=== PATIENT | male | born 1960 | race Caucasian/White ===

== ENCOUNTER 2016-11-28 10:46 | Day surgery (SDC) | payer OTHER ==
[~2016-11-28] VITALS: Ht 163.8 cm; Wt 86.2 kg
[2016-11-28 11:56] VITALS: Ht 163.8 cm; Wt 86.2 kg
[2016-11-28] MEDS ORDERED: LORAZEPAM PO (12:07)
[2016-11-28] MEDS ORDERED: BENAZEPRIL PO (12:07)
[2016-11-28] MEDS ORDERED: SIMVASTATIN PO (12:07)
[2016-11-28] MEDS ORDERED: CITALOPRAM PO (12:07)
[2016-11-28] MEDS ORDERED: METFORMIN PO (12:07)
[2016-11-28] MEDS ORDERED: FENTAnyl 50 MCG/ML VIAL ONE (13:09)
[2016-11-28] MEDS ORDERED: LIDOCAINE 2% (SDV) 5 ML INJ ONE (13:09)
[2016-11-28] MEDS ORDERED: PROPOFOL 20 ML ONE (13:09)
[2016-11-28] MEDS ORDERED: PHENYLephrine (100 MCG/ML) 5ML SYG ONE (13:09)
[2016-11-28 13:14] VITALS: BP 130/79; PULSE 53; RESP 20
[2016-11-28 14:00] VITALS: BP 138/98; PULSE 64; RESP 14
--- NOTE | 2016-12-06 05:22 | GILP ---
DATE OF PROCEDURE: 11/28/2016 PREOPERATIVE DIAGNOSIS: Screening colonoscopy. PROCEDURE PERFORMED: Colonoscopy and biopsy. SURGEON: Chana Evans MD. POSTOPERATIVE DIAGNOSES: 1. Colonoscopy all the way to the cecum. 2. Small sigmoid colon polyp was removed using the biopsy forceps. 3. A 2-cm submucosal mass in the cecum and biopsies were taken for histopathology. 4. Diverticulosis of the colon. 5. Internal hemorrhoids. INDICATIONS FOR PROCEDURE: Mr. Nelson Vee is a 56-year-old male patient who was scheduled for screening colonoscopy. The procedure and possible complications were well explained to the patient. He understood and consented to the procedure. DESCRIPTION OF PROCEDURE: Under the influence of anesthesia the colonoscope was carefully introduced in the rectum and under direct vision was advanced all the way to the cecum. [____] a small sigmoid colon polyp and it was removed using the biopsy forceps. The patient had a 2-cm submucosal mass in the cecum and biopsies were taken for histopathology. He was noted to have diverticulosis of the colon and internal hemorrhoids. He tolerated the procedure very well and there was no complication from the procedure. At the end of the procedure he was awake with stable vital signs and he was discharged home in the care of family. IMPRESSION: 1. Sigmoid colon polyp was removed using the biopsy forceps. 2. A 2-cm submucosal mass in the cecum and biopsies were taken for histopathology. 3. Diverticulosis of the colon. 4. Internal hemorrhoids. PLAN: 1. Await histopathology report. 2. The patient may need endoscopic ultrasound for further evaluation of submucosal mass in the cecum. Dictated By: MD JALEN Ballard/tarsha/kyle /Document#: [id number] CC: Chana Evans MD;*[facility]*
== END 2016-11-28 17:19 | disposition home or self-care (01) ==
LOC: GIL 10:46
PROVIDERS: ATTEND Internal Medicine Gastroenterology
DX: Z12.11 Encounter for screening for malignant neoplasm of colon (principal); D12.5 Benign neoplasm of sigmoid colon; K57.90 Diverticulosis of intestine, part unspecified, without perforation or abscess without bleeding; K64.8 Other hemorrhoids; E11.9 Type 2 diabetes mellitus without complications; E78.5 Hyperlipidemia, unspecified; I10 Essential (primary) hypertension; F41.9 Anxiety disorder, unspecified
CPT/HCPCS: 45380; 82962; 88305; J3010; Z7610; 88341; 88342; J2370